=== PATIENT | female | born 1945 | race Caucasian/White ===

== ENCOUNTER → 2016-09-28 | Outpatient (CLI) | payer OTHER | LOC: BRMIMAGING 13:10 | PROVIDERS: ATTEND Family Medicine | DX: M85.839 Other specified disorders of bone density and structure, unspecified forearm (principal); M19.041 Primary osteoarthritis, right hand; M19.042 Primary osteoarthritis, left hand; Z78.0 Asymptomatic menopausal state | CPT/HCPCS: 73130-PO ==

== ENCOUNTER → 2018-02-18 | Outpatient (CLI) | payer OTHER | LOC: FIMAGING 15:53 | PROVIDERS: ATTEND Family Medicine | DX: N92.4 Excessive bleeding in the premenopausal period (principal); N85.8 Other specified noninflammatory disorders of uterus ==